=== PATIENT | female | born 1945 | race Caucasian/White ===

== ENCOUNTER 2023-03-30 06:45 | Inpatient (IN) | payer MEDICARE ==
[2023-03-30] MEDS ORDERED: Vancomycin 1 GM/200 ML (FROZEN) BAG ONE (07:47)
[2023-03-30] MEDS ORDERED: Sodium Chloride 0.9% 100 ML ONE ×2 (07:47→09:34)
[2023-03-30] MEDS ORDERED: Tranexamic Acid 1,000 MG/10 ML VIAL ONE (07:47)
[2023-03-30] MEDS ORDERED: fentaNYL 50 mcg/mL 1 mL Vial ONE (08:21)
[2023-03-30] MEDS ORDERED: Bupivacaine PF 0.5% 30 ML VIAL ONE ×2 (08:22→10:29)
[2023-03-30] MEDS ORDERED: Propofol 1,000 MG/100 ML VIAL IV ONE (09:27)
[2023-03-30] MEDS ORDERED: CEFAZOLIN 2 GM VIAL ONE (09:34)
[2023-03-30] MEDS ORDERED: diphenhydrAMINE 25 MG CAP PO PRN (09:41)
[2023-03-30] MEDS ORDERED: Promethazine HCl 25 MG/ML VIAL IM PRN (09:41)
[2023-03-30] MEDS ORDERED: Zolpidem Tartrate 5 MG TAB PO PRN (09:41)
[2023-03-30] MEDS ORDERED: Ondansetron PF 4 MG/2 ML Vial IVP PRN (09:41)
[2023-03-30] MEDS ORDERED: fentaNYL 50 mcg/mL 1 mL Vial SLOW IVP PRN (09:41)
[2023-03-30] MEDS ORDERED: Acetaminophen 325 MG TAB PO PRN (09:41)
[2023-03-30] MEDS ORDERED: Bupivacaine HCl 0.5%/Epinephrine 1:200,000/PF 30 ml Vial ONE (09:49)
[2023-03-30] MEDS ORDERED: PHENYLEPHRINE-NS 100 MCG/ML 10 ML SYRINGE ONE (09:49)
[2023-03-30] MEDS ORDERED: ePHEDrine Sulfate 50 MG/10 ML VIAL ONE (09:49)
[2023-03-30] MEDS: CEFAZOLIN 2 GM in Sodium Chloride 0.9% 100 ML IVPB SCH (18:04)
[2023-03-30] MEDS: Ferrous Gluconate 324 MG TAB PO SCH (21:17)
[2023-03-30] MEDS: Senokot S 8.6-50 MG TAB PO SCH (21:18)
[2023-03-30] MEDS: Aspirin 81 mg Enteric Coated Tablet PO SCH (21:18)
[2023-03-30] MEDS: traMADol HCl 50 MG TAB PO PRN (21:18)
[2023-03-31] MEDS: traMADol HCl 50 MG TAB PO PRN ×3 (02:46→20:47)
[2023-03-31] MEDS: CEFAZOLIN 2 GM in Sodium Chloride 0.9% 100 ML IVPB SCH (02:47)
[2023-03-31 07:01] LABS: Hemoglobin 10.9 g/dL (12.0-16.0); Mean Corpuscular Hemoglobin 29.8 pg (27.0-31.0); Mean Corpuscular Volume 90.2 fl (78.0-98.0); Mean Platelet Volume 10.8 fL (7.4-10.4); Platelet Count 247 10x3/uL (130-400); RBC Distribution Width 15.3 % (11.5-14.5); Red Blood Cell (RBC) Count 3.66 mill/uL (4.20-5.40); White Blood Cell (WBC) Count 10.7 10x3/uL (4.8-10.8)
[2023-03-31] MEDS ORDERED: Glucagon 1 MG/ML KIT IM PRN (08:41)
[2023-03-31] MEDS ORDERED: Dextrose 50% Abboject 50 ML SYRINGE SLOW IVP PRN (08:41)
[2023-03-31] MEDS ORDERED: Dextrose 5% in Water 1,000 ML IV PRN (08:41)
[2023-03-31] MEDS ORDERED: HumaLOG 300 UNITS/3 ML VIAL SC PRN (08:41)
[2023-03-31] MEDS: Ferrous Gluconate 324 MG TAB PO SCH ×2 (08:49→20:47)
[2023-03-31] MEDS: Multivitamin W/ Minerals 1 TAB PO SCH (08:49)
[2023-03-31] MEDS: Donepezil HCl 5 MG TAB PO SCH (08:52)
[2023-03-31] MEDS: DULoxetine 60 MG CAP PO SCH ×2 (08:52→20:47)
[2023-03-31] MEDS: Senokot S 8.6-50 MG TAB PO SCH ×2 (09:01→20:47)
[2023-03-31] MEDS: Aspirin 81 mg Enteric Coated Tablet PO SCH ×2 (10:15→20:47)
[2023-04-01] MEDS: Levothyroxine Sodium 100 MCG TAB PO SCH (06:04)
[2023-04-01 06:27] LABS: Mean Corpuscular HGB CONC 32.7 g/dL (32.0-36.0); Mean Corpuscular Hemoglobin 30.3 pg (27.0-31.0); Mean Corpuscular Volume 92.7 fl (78.0-98.0); Mean Platelet Volume 10.7 fL (7.4-10.4); Platelet Count 209 10x3/uL (130-400); RBC Distribution Width 15.5 % (11.5-14.5); White Blood Cell (WBC) Count 12.5 10x3/uL (4.8-10.8)
[2023-04-01] MEDS: Senokot S 8.6-50 MG TAB PO SCH ×2 (10:01→21:53)
[2023-04-01] MEDS: Apixaban 5 MG TAB PO SCH ×2 (10:02→21:54)
[2023-04-01] MEDS: Multivitamin W/ Minerals 1 TAB PO SCH (10:02)
[2023-04-01] MEDS: DULoxetine 60 MG CAP PO SCH ×2 (10:02→21:52)
[2023-04-01] MEDS: Donepezil HCl 5 MG TAB PO SCH (10:08)
[2023-04-01] MEDS: Aspirin 81 mg Enteric Coated Tablet PO SCH ×3 (10:08→21:55)
[2023-04-01] MEDS: Ferrous Gluconate 324 MG TAB PO SCH ×2 (10:08→21:52)
[2023-04-01] MEDS: traMADol HCl 50 MG TAB PO PRN (21:52)
[2023-04-02] MEDS: Levothyroxine Sodium 100 MCG TAB PO SCH (06:03)
[2023-04-02] MEDS: Senokot S 8.6-50 MG TAB PO SCH (08:13)
[2023-04-02] MEDS: traMADol HCl 50 MG TAB PO PRN (08:14)
[2023-04-02] MEDS: DULoxetine 60 MG CAP PO SCH (08:14)
[2023-04-02] MEDS: Donepezil HCl 5 MG TAB PO SCH (08:14)
[2023-04-02] MEDS: Ferrous Gluconate 324 MG TAB PO SCH (08:14)
[2023-04-02] MEDS: Multivitamin W/ Minerals 1 TAB PO SCH (08:14)
[2023-04-02] MEDS: Apixaban 5 MG TAB PO SCH (08:14)
[2023-04-02] MEDS: Aspirin 81 mg Enteric Coated Tablet PO SCH (08:16)
[2023-04-02 12:12] VITALS: BP 103/67; TEMP 97.5
== END 2023-04-02 14:24 | DRG 522 ==
LOC: SDC 06:45 → SURG A 13:32 → OBSVTOIN 04-01 16:40
PROVIDERS: ADMIT Orthopaedic Surgery; ATTEND Internal Medicine
PROC: 0SRB0JA Replacement of Left Hip Joint with Synthetic Substitute, Uncemented, Open Approach (ICD-10-PCS; principal; 2023-03-30)
DX: S72.052A Unspecified fracture of head of left femur, initial encounter for closed fracture (principal); D62 Acute posthemorrhagic anemia; M16.12 Unilateral primary osteoarthritis, left hip; E11.9 Type 2 diabetes mellitus without complications; E03.9 Hypothyroidism, unspecified; F32.9 Major depressive disorder, single episode, unspecified; F41.1 Generalized anxiety disorder; D64.89 Other specified anemias; G30.9 Alzheimer's disease, unspecified; F02.80 Dementia in other diseases classified elsewhere, unspecified severity, without behavioral disturbance, psychotic disturbance, mood disturbance, and anxiety; X58.XXXA Exposure to other specified factors, initial encounter
CPT/HCPCS: 36415; 36416; 85027; 87324; 87449; 96374; 96376; C1776; G0378; J2704; J3010; J3370-JW; J3490; S0020